=== PATIENT | male | born 2000 | race Caucasian/White ===

== ENCOUNTER 2018-05-23 18:29 | Emergency (ER) | payer SELFPAY ==
[~2018-05-23] VITALS: Ht 175.3 cm; Wt 75.0 kg
[2018-05-23] MEDS ORDERED: KETOROLAC 30MG/ML VIAL IM ONE (19:15)
[2018-05-23 19:21] VITALS: BP 127/68
== END 2018-05-23 20:46 | disposition home or self-care (01) ==
LOC: ER 18:29
DX: S39.012A Strain of muscle, fascia and tendon of lower back, initial encounter (principal); V49.49XA Driver injured in collision with other motor vehicles in traffic accident, initial encounter; Y93.89 Activity, other specified; Y92.89 Other specified places as the place of occurrence of the external cause; Y99.8 Other external cause status; Z90.49 Acquired absence of other specified parts of digestive tract; Z98.890 Other specified postprocedural states
CPT/HCPCS: 96372; 99283; J1885

== ENCOUNTER 2018-06-03 10:10 | Emergency (ER) | payer MEDICAID ==
[~2018-06-03] VITALS: Ht 180.3 cm; Wt 75.0 kg
[2018-06-03 10:16] VITALS: BP 135/86
== END 2018-06-03 12:08 | disposition left against medical advice (07) ==
LOC: ER 10:10
DX: Z53.21 Procedure and treatment not carried out due to patient leaving prior to being seen by health care provider (principal)